=== PATIENT | female | born 1960 | race Caucasian/White ===

== ENCOUNTER 2017-09-30 10:56 | Emergency (ER) | payer OTHER ==
[~2017-09-30] VITALS: Ht 167.6 cm; Wt 106.6 kg
[~2017-09-30 10:56] MED LIST: ACET325 PO; Bactrim 400-801 EACH PO; DULO30; DULO60 PO; ERGO50000 PO; IBUP400 PO; IBUP800 PO; NORT10 PO; Norco 5-325 Ta1 EACH PO; PANT40 PO; SERT50 PO; SUCR1 PO; TIZANIDINE HCL4 MG; TRAM50 PO; TRAZ150T57 PO; Tamiflu75 MG PO
[2017-09-30] MEDS ORDERED: CITA20 PO (11:21)
[2017-09-30] MEDS ORDERED: BACL10 PO (11:21)
[2017-09-30 11:29] LABS: Source, Urine Clean Catch
[2017-09-30] MEDS ORDERED: Keflex500 MG PO (11:30)
[2017-09-30] MEDS ORDERED: Pyridium200 MG PO (11:30)
[2017-09-30 11:36] LABS: Blood, Urine 4+ (Neg); Glucose Qualitative, Urine Neg (Neg); Ketones, Urine 1+ (Neg); Leukocyte Esterase, Urine 3+ (Neg); Nitrite, Urine Pos (Neg); Protein, Urine 3+ (Neg); Urobilinogen, Urine 3+ (Normal)
[2017-09-30 11:47] LABS: Bilirubin, Urine 2+ (Neg)
[2017-09-30 11:48] LABS: Appearance, Urine Hazy (Clear); Bacteria Many /hpf; Color, Urine Orange (P-Yellow); Squamous Epithelial Cells Few /hpf (Few); White Blood Cells, Urine TNTC /hpf (0-5)
[2017-09-30 11:49] LABS: Renal Epithelial Few /hpf (0-Rare)
== END 2017-09-30 11:36 | disposition home or self-care (01) ==
LOC: ER 10:56
PROVIDERS: Physician Assistant
DX: N39.0 Urinary tract infection, site not specified (principal); K21.9 Gastro-esophageal reflux disease without esophagitis; Z91.018 Allergy to other foods; Z79.899 Other long term (current) drug therapy
CPT/HCPCS: 81001; 87077; 87086; 87186; 99283

== ENCOUNTER → 2019-03-25 | Outpatient (CLI) | payer OTHER ==
[~2019-03-25] MED LIST changes: +BACL10 PO; +CITA20 PO; +Cymbalta60 MG PO; +Keflex500 MG PO; +PANT20; +Pyridium200 MG PO
[2019-03-28 15:06] LABS: HPV 16 Negative (Negative); HPV 18 Negative (Negative); HPV OTHER HR TYPES Negative (Negative)
== END ==
LOC: LAB 15:30 → LAB SHORT 15:30
PROVIDERS: Student in an Organized Health Care Education/Training Program
DX: Z01.419 Encounter for gynecological examination (general) (routine) without abnormal findings (principal)
CPT/HCPCS: 87624; G0145

== ENCOUNTER → 2019-04-11 | Outpatient (CLI) | payer OTHER | END | disposition home or self-care (01) | LOC: LAB EV 16:00 | DX: R10.13 Epigastric pain (principal) ==

== ENCOUNTER → 2019-04-16 | Outpatient (CLI) | payer OTHER | END | disposition home or self-care (01) | LOC: LAB EV 16:36 | DX: R10.13 Epigastric pain (principal) | CPT/HCPCS: 87338 ==

== ENCOUNTER → 2020-12-27 | Outpatient (CLI) | payer OTHER ==
[~2020-12-27] MED LIST changes: +BUPR150ER PO; +LOPE2C PO; +MELO7.5 PO; +MIRALAX17 GM PO; +ONDA4ODT MM; -PANT20; +PANT20 PO; +PREG75 PO; +TIZA4 PO
== END | disposition home or self-care (01) ==
LOC: LAB SHORT 16:17
DX: N39.0 Urinary tract infection, site not specified (principal)
CPT/HCPCS: 87077; 87086; 87186

== ENCOUNTER → 2021-06-22 | Outpatient (CLI) | payer OTHER | LOC: LAB SHORT 13:14 → LAB 13:14 | DX: N39.0 Urinary tract infection, site not specified (principal) | CPT/HCPCS: 87077; 87086; 87186 ==

== ENCOUNTER → 2021-10-03 | Outpatient (CLI) | payer OTHER | END | disposition home or self-care (01) | LOC: LAB SHORT 10:36 → LAB 10:36 | DX: N39.0 Urinary tract infection, site not specified (principal) | CPT/HCPCS: 87077; 87086; 87186 ==

== ENCOUNTER 2022-01-06 23:43 | Emergency (ER) | payer OTHER ==
[~2022-01-06] VITALS: Ht 167.6 cm; Wt 97.1 kg
== END 2022-01-07 02:19 | disposition home or self-care (01) ==
LOC: ER 23:43
DX: S91.114A Laceration without foreign body of right lesser toe(s) without damage to nail, initial encounter (principal); K21.9 Gastro-esophageal reflux disease without esophagitis; M79.7 Fibromyalgia; Z91.018 Allergy to other foods; Z79.899 Other long term (current) drug therapy; W26.8XXA Contact with other sharp object(s), not elsewhere classified, initial encounter
CPT/HCPCS: 12002; 90471; 90714; 99282

== ENCOUNTER 2022-03-10 10:53 | Day surgery (SDC) | payer OTHER ==
[~2022-03-10] VITALS: Ht 167.6 cm; Wt 96.2 kg
== END 2022-03-10 13:38 | disposition home or self-care (01) ==
LOC: ORSCSDS 10:53
PROVIDERS: Orthopaedic Surgery
PROC: 0LN70ZZ Release Right Hand Tendon, Open Approach (ICD-10-PCS; principal; 2022-03-10 12:15)
DX: M65.331 Trigger finger, right middle finger (principal); K21.9 Gastro-esophageal reflux disease without esophagitis; F41.9 Anxiety disorder, unspecified; E66.9 Obesity, unspecified; F32.A Depression, unspecified; Z68.34 Body mass index [BMI] 34.0-34.9, adult; Z79.899 Other long term (current) drug therapy
CPT/HCPCS: J0690; J2001; J2250; J2704; J3010

== ENCOUNTER → 2022-05-02 | Outpatient (CLI) | payer OTHER | END | disposition home or self-care (01) | LOC: LAB SHORT 16:48 → LAB 16:48 | DX: N39.0 Urinary tract infection, site not specified (principal) | CPT/HCPCS: 87077; 87086; 87186 ==

== ENCOUNTER → 2024-04-30 | Outpatient (CLI) | payer OTHER ==
[~2024-04-30] MED LIST changes: +BUPR100 PO; -BUPR150ER PO; +CYMBALTA20 M1 PO; +MOBIC15 MG PO; -PANT20 PO; +PROTONIX4010 PO
[2024-05-08 17:06] LABS: HPV HIGH RISK BY TMA Not Detected; HPV SOURCE Cervical
== END | disposition home or self-care (01) ==
LOC: LAB 09:54 → LAB SHORT 09:54
PROVIDERS: Family Medicine
DX: Z01.419 Encounter for gynecological examination (general) (routine) without abnormal findings (principal)
CPT/HCPCS: 87624; G0123